=== PATIENT | male | born 1955 | race Caucasian/White ===

== ENCOUNTER → 2016-08-03 | Outpatient (REF) | payer MEDICARE, OTHER ==
[~2016-08-03] MED LIST: /ESOM40CA OR
[2016-08-03 12:27] LABS: PERCENT SATURATION 17.3 % (19.7-37.4)
== END ==
LOC: M LAB REF 11:47
PROVIDERS: ATTEND Nurse Practitioner Adult Health
DX: D64.9 Anemia, unspecified (principal)

== ENCOUNTER → 2017-02-06 | Outpatient (REF) | payer MEDICARE, OTHER ==
[2017-02-06 14:04] LABS: VITAMIN B12 LEVEL 278 PG/ML (247-911)
== END ==
LOC: M LAB REF 13:24
PROVIDERS: ATTEND Nurse Practitioner Adult Health
DX: D64.9 Anemia, unspecified (principal); K91.1 Postgastric surgery syndromes

== ENCOUNTER → 2017-08-31 | Outpatient (REF) | payer MEDICARE, OTHER ==
[2017-08-31 11:28] LABS: PROSTATIC SPECIFIC AG MONITOR 0.96 NG/ML (< 4.0)
== END ==
LOC: M LAB REF 10:40
DX: Z12.5 Encounter for screening for malignant neoplasm of prostate (principal)
CPT/HCPCS: G0103

== ENCOUNTER → 2019-08-29 | Outpatient (CLI) | payer MEDICARE, OTHER ==
[~2019-08-29] MED LIST changes: -/ESOM40CA OR; +AZEL0.055 INH; +BIMA01SOL OU; +CHOL100029 PO; +CIAL20TA PO; +FLUTISP INH; +MOME50SP NARES; +MULT1TAB10 PO; +MULTCAP PO; +NEXI1CAP3 OR; +SUCR1ORA2 PO; +SUCR1TA PO; +VITAD1000T PO
[2019-08-29 16:23] LABS: BASO % 0.4 % (0.0-1.0); EOS # 0.1 10^3/uL (0.0-0.5); EOS % 1.8 % (0.0-3.0); HEMATOCRIT 38.8 % (42.0-52.0); HEMOGLOBIN 12.7 g/dl (13.5-17.5); LYMPH % 20.1 % (24.0-44.0); MEAN CORPUSCULAR HEMOGLOBIN 29.5 pg (27.0-33.0); MEAN CORPUSCULAR HGB CONC 32.7 g/dl (32.0-36.5); MEAN CORPUSCULAR VOLUME 90.2 fl (80.0-96.0); MONO # 0.4 10^3/uL (0.0-0.8); MONO % 8.4 % (0.0-5.0); NEUTROPHILS # 3.4 10^3/uL (1.5-8.5); NEUTROPHILS % 68.9 % (36.0-66.0); PLATELET COUNT, AUTOMATED 217 10^3/uL (150-450)
[2019-08-29 16:26] LABS: ALBUMIN 3.7 GM/DL (3.2-5.2); ALT/SGPT 31 U/L (12-78); BILIRUBIN,TOTAL 0.8 MG/DL (0.2-1.0); BLOOD UREA NITROGEN 18 MG/DL (7-18); CARBON DIOXIDE LEVEL 27 MEQ/L (21-32); CHLORIDE LEVEL 105 MEQ/L (98-107); CREATININE FOR GFR 1.24 MG/DL (0.70-1.30); GLOMERULAR FILTRATION RATE > 60.0 (>49); GLUCOSE, FASTING 107 MG/DL (70-100); POTASSIUM SERUM 4.2 MEQ/L (3.5-5.1); PROSTATIC SPECIFIC AG MONITOR 0.62 NG/ML (< 4.00); SODIUM LEVEL 138 MEQ/L (136-145); TOTAL PROTEIN 6.8 GM/DL (6.4-8.2)
[2019-08-30 10:37] LABS: IRON (FE) 89 UG/DL (65-175); PERCENT SATURATION 26.9 % (19.7-50.0); TOTAL IRON BINDING CAPACITY 331 UG/DL (250-450)
== END ==
LOC: M WUC 14:14
PROVIDERS: ATTEND Nurse Practitioner Family
DX: C15.9 Malignant neoplasm of esophagus, unspecified (principal); D64.9 Anemia, unspecified

== ENCOUNTER → 2020-01-30 | Outpatient (REF) | payer MEDICARE, OTHER ==
[~2020-01-30] MED LIST changes: +D31000TA2 PO; -VITAD1000T PO
== END ==
LOC: M LAB REF 16:08
PROVIDERS: ATTEND Nurse Practitioner Adult Health
DX: D64.9 Anemia, unspecified (principal)

== ENCOUNTER → 2020-03-17 | Outpatient (CLI) | payer SELFPAY | LOC: M LABSMTC 12:58 | PROVIDERS: ATTEND Pediatrics | DX: Z20.828 Contact with and (suspected) exposure to other viral communicable diseases (principal) ==

== ENCOUNTER → 2020-03-30 | Outpatient (CLI) | payer SELFPAY | LOC: M LABSMTC 14:01 | PROVIDERS: ATTEND Pediatrics | DX: Z11.59 Encounter for screening for other viral diseases (principal) ==

== ENCOUNTER → 2020-07-29 | Outpatient (CLI) | payer MEDICARE, OTHER ==
[~2020-07-29] MED LIST changes: +MUCI600T31 PO; +RA N1TAB PO; +VITMTA PO
== END ==
LOC: M LABSMTC 11:29
PROVIDERS: ATTEND Anesthesiology
DX: Z11.52 Encounter for screening for COVID-19 (principal)

== ENCOUNTER 2020-08-03 06:26 | Day surgery (SDC) | payer MEDICARE, OTHER ==
[~2020-08-03] VITALS: Ht 165.1 cm; Wt 65.2 kg
[2020-08-03] MEDS ORDERED: DUOVISC (0.50ML VISCOAT/0.55ML PROVISC) OPHTH KIT As Ordered ONE ×2 (06:44→06:46)
[2020-08-03] MEDS ORDERED: POVIDONE-IODINE 5% OPHTH PREP SOL 30ML As Ordered ONE (06:44)
[2020-08-03] MEDS ORDERED: TROPICAMIDE 1% OPHTH SOLN 2ML OD ONE (07:00)
[2020-08-03] MEDS ORDERED: PROPARACAINE 0.5% OPHTH SOL 15ML OD ONE (07:00)
[2020-08-03] MEDS ORDERED: PHENYLEPHRINE 2.5% OPHTH SOL 2ML OD ONE (07:00)
[2020-08-03] MEDS ORDERED: OFLOXACIN 0.3 % (OCUFLOX) OPTH SOL 5ML OD ONE (07:00)
[2020-08-03] MEDS ORDERED: BSS IRR 500ML/OMIDRIA 4ML IRR BAG (OR ONLY) As Ordered ONE (07:46)
[2020-08-03] MEDS ORDERED: fentaNYL 100 MCG/2 ML INJECTION (J3010) As Ordered ONE (08:39)
[2020-08-03] MEDS ORDERED: MIDAZOLAM INJ 2MG/2ML VIAL (J2250 PER 1MG) As Ordered ONE (08:39)
[2020-08-03 09:10] VITALS: BP 120/77
--- NOTE | 2020-08-04 09:04 | RO ---
OPERATIVE NOTE DATE OF OPERATION: 08/03/2020 PREOPERATIVE DIAGNOSES: 1. Visually significant nuclear sclerotic cataract, right eye. 2. Primary open-angle glaucoma, right eye. POSTOPERATIVE DIAGNOSES: 1. Visually significant nuclear sclerotic cataract, right eye. 2. Primary open-angle glaucoma, right eye. PROCEDURES: 1. Extracapsular cataract removal with insertion of intraocular lens implant of the right eye, AU00T0, 18.5 D, right eye. 2. Placement of Glaukos iStent right eye. ANESTHESIA: Local (Omidria) with MAC COMPLICATIONS: None POSTOPERATIVE CONDITION: Stable INDICATIONS FOR SURGERY: 1. Blurred vision affecting patient's activities of daily living DESCRIPTION OF PROCEDURE: The patient was seen in the preoperative area and properly identified. The correct operative eye was identified and marked. The patient received topical anesthetic, antibiotics, and topical dilating drops. The patient was then transferred to the operating room. The correct side was re-identified and a timeout was performed. The eye was prepped and draped in a sterile fashion. The eyelids were isolated with Tegaderm tape and the lids were held open with an adjustable speculum. A 1.0 mm paracentesis incision was made. Omidria was injected into the anterior chamber. Viscoelastic was then injected into the anterior chamber through the paracentesis. Using a 2.4 mm sharp-tipped keratome, the anterior chamber was entered via a temporal clear cornea incision. A continuous curvilinear capsulorhexis was created with Utrata forceps. Hydrodissection was performed with BSS on a blunt cannula until the nucleus was able to rotate freely. The crystalline lens was phacoemulsified and aspirated. Irrigation/aspiration was used to remove the cortical material Cohesive viscoelastic was placed into the capsular bag to deepen it. The implant was placed into the capsular bag and allowed to unfold. Placement was confirmed by visualizing the anterior capsulorhexis. Additional viscoelastic was placed in the anterior chamber, and on top of the cornea. The head was untaped, and rotated away. The microscope was rotated to 45 degrees. A gonioprism was placed on the cornea and the angle was visualized. The iStent inject was placed into the trabecular meshwork, approximately 4 clock hours apart without difficulty. A small gush of heme was noted indicating appropriate placement. No hyphema was present. The head was placed face up and the microscope to 0 degrees. Irrigation/aspiration was used to remove the viscoelastic. The clear corneal incision was hydrated with BSS on a blunt cannula. The lens was well positioned. Cefuroxime was injected into the anterior chamber. The incisions were then tested for leaks and found to be negative. The eye was then palpated for appropriate pressure and adjusted accordingly with BSS. The eyelid speculum was then carefully removed. A shield was placed over the eye. The patient tolerated the procedure well and was discharge to the recovery unit in a stable condition.
== END 2020-08-03 09:15 | disposition home or self-care (01) ==
LOC: M SDC 06:26
PROVIDERS: ATTEND Ophthalmology
DX: H25.11 Age-related nuclear cataract, right eye (principal); H40.1110 Primary open-angle glaucoma, right eye, stage unspecified; I10 Essential (primary) hypertension; K21.9 Gastro-esophageal reflux disease without esophagitis; J44.9 Chronic obstructive pulmonary disease, unspecified; Z87.891 Personal history of nicotine dependence; G47.30 Sleep apnea, unspecified; Z88.0 Allergy status to penicillin; Z88.8 Allergy status to other drugs, medicaments and biological substances; Z79.899 Other long term (current) drug therapy; Z92.21 Personal history of antineoplastic chemotherapy; Z92.3 Personal history of irradiation; Z85.01 Personal history of malignant neoplasm of esophagus
CPT/HCPCS: 66183; 66984; C1783; J1097; J2250; J3010; V2632

== ENCOUNTER → 2020-09-10 | Outpatient (CLI) | payer MEDICARE, OTHER ==
[~2020-09-10] MED LIST changes: +BIMA01SOL OS; -BIMA01SOL OU; +OMEP-221 PO; +SYMB80INH INH; +VENTAER INH
== END ==
LOC: M LABSMTC 12:54
PROVIDERS: ATTEND Anesthesiology
DX: Z01.812 Encounter for preprocedural laboratory examination (principal); Z20.822 Contact with and (suspected) exposure to COVID-19

== ENCOUNTER 2020-09-14 07:59 | Day surgery (SDC) | payer MEDICARE, OTHER ==
[~2020-09-14] VITALS: Ht 165.1 cm; Wt 64.8 kg
[~2020-09-14 07:59] MED LIST changes: +DUOVISC (0.50ML VISCOAT/0.55ML PROVISC) OPHTH KIT As Ordered ONE; +MIDAZOLAM INJ 2MG/2ML VIAL (J2250 PER 1MG) As Ordered ONE; +OFLOXACIN 0.3 % (OCUFLOX) OPTH SOL 5ML OS ONE; +PHENYLEPHRINE 2.5% OPHTH SOL 2ML OS ONE; +POVIDONE-IODINE 5% OPHTH PREP SOL 30ML As Ordered ONE; +PROPARACAINE 0.5% OPHTH SOL 15ML OS ONE; +TROPICAMIDE 1% OPHTH SOLN 2ML OS ONE; +fentaNYL 100 MCG/2 ML INJECTION (J3010) As Ordered ONE
[2020-09-14] MEDS ORDERED: BSS IRR 500ML/OMIDRIA 4ML IRR BAG (OR ONLY) As Ordered ONE (08:57)
[2020-09-14] MEDS ORDERED: DUOVISC (0.50ML VISCOAT/0.55ML PROVISC) OPHTH KIT As Ordered ONE (09:45)
[2020-09-14 10:25] VITALS: BP 130/74
--- NOTE | 2020-09-15 07:56 | RO ---
OPERATIVE NOTE DATE OF OPERATION: 09/14/2020 PREOPERATIVE DIAGNOSES: 1. Visually significant nuclear sclerotic cataract, left eye. 2. Primary open angle glaucoma, left eye. POSTOPERATIVE DIAGNOSES: 1. Visually significant nuclear sclerotic cataract, left eye. 2. Primary open angle glaucoma, left eye. PROCEDURE: 1. Cataract extraction with use of phacoemulsification, and placement of intraocular lens, AU00T0, 18.5 D, left eye. 2. Placement of GlaukosiStent, left eye. ANESTHESIA: Local (Omidria) with MAC COMPLICATIONS: None POSTOPERATIVE CONDITION: Stable INDICATIONS FOR SURGERY: 1. Blurred vision affecting patient's activities of daily living DESCRIPTION OF PROCEDURE: The patient was seen in the preoperative area and properly identified. The correct operative eye was identified and marked. The patient received topical anesthetic, antibiotics, and topical dilating drops. The patient was then transferred to the operating room. The correct side was re-identified and a timeout was performed. The eye was prepped and draped in a sterile fashion. The eyelids were isolated with Tegaderm tape and the lids were held open with an adjustable speculum. A 1.0mm paracentesis incision was made. Omidria was injected into the anterior chamber. Viscoelastic was then injected into the anterior chamber through the paracentesis. Using a 2.4mm sharp-tipped keratome, the anterior chamber was entered via a temporal clear cornea incision. A continuous curvilinear capsulorhexis was created with Utrata forceps. Hydrodissection was performed with BSS on a blunt cannula until the nucleus was able to rotate freely. The crystalline lens was phacoemulsified and aspirated. Irrigation/aspiration was used to remove the cortical material Cohesive viscoelastic was placed into the capsular bag to deepen it. The implant was placed into the capsular bag and allowed to unfold. Placement was confirmed by visualizing the anterior capsulorhexis. Additional viscoelastic was placed in the anterior chamber, and on top of the cornea. The head was untaped, and rotated away. The microscope was rotated to 45 degrees. A gonioprism was placed on the cornea and the angle was visualized. The iStent inject was placed into the trabecular meshwork, approximately 4 clock hours apart without difficulty. A small gush of heme was noted indicating appropriate placement. No hyphema was present. The head was placed face up and the microscope to 0 degrees. Irrigation/aspiration was used to remove the viscoelastic. The clear corneal incision was hydrated with BSS on a blunt cannula. The lens was well positioned. Cefuroxime was injected into the anterior chamber. The incisions were then tested for leaks and found to be negative. The eye was then palpated for appropriate pressure and adjusted accordingly with BSS. The eyelid speculum was then carefully removed. A shield was placed over the eye. The patient tolerated the procedure well and was discharge to the recovery unit in a stable condition.
== END 2020-09-14 10:41 | disposition home or self-care (01) ==
LOC: M SDC 07:59
PROVIDERS: ATTEND Ophthalmology
DX: H25.12 Age-related nuclear cataract, left eye (principal); H40.1124 Primary open-angle glaucoma, left eye, indeterminate stage; I10 Essential (primary) hypertension; K21.9 Gastro-esophageal reflux disease without esophagitis; M54.9 Dorsalgia, unspecified; J44.9 Chronic obstructive pulmonary disease, unspecified; J45.909 Unspecified asthma, uncomplicated; G47.30 Sleep apnea, unspecified; Z85.01 Personal history of malignant neoplasm of esophagus; Z92.3 Personal history of irradiation; Z92.21 Personal history of antineoplastic chemotherapy; Z88.0 Allergy status to penicillin; Z88.8 Allergy status to other drugs, medicaments and biological substances; Z79.899 Other long term (current) drug therapy; Z79.51 Long term (current) use of inhaled steroids
CPT/HCPCS: 66183; 66984; C1783; J1097; J2250; J3010; V2632

== ENCOUNTER → 2021-09-04 | Outpatient (CLI) | payer MEDICARE, OTHER ==
[~2021-09-04] MED LIST changes: -D31000TA2 PO; -DUOVISC (0.50ML VISCOAT/0.55ML PROVISC) OPHTH KIT As Ordered ONE; +LEVOTAB10; -MIDAZOLAM INJ 2MG/2ML VIAL (J2250 PER 1MG) As Ordered ONE; -MOME50SP NARES; +NASO50SP3 NARES; -OFLOXACIN 0.3 % (OCUFLOX) OPTH SOL 5ML OS ONE; -OMEP-221 PO; +OMEP40CA5 PO; -PHENYLEPHRINE 2.5% OPHTH SOL 2ML OS ONE; -POVIDONE-IODINE 5% OPHTH PREP SOL 30ML As Ordered ONE; -PROPARACAINE 0.5% OPHTH SOL 15ML OS ONE; -TROPICAMIDE 1% OPHTH SOLN 2ML OS ONE; +VITA100093 PO; -fentaNYL 100 MCG/2 ML INJECTION (J3010) As Ordered ONE
== END ==
LOC: M LABSMTC 09:30
PROVIDERS: ATTEND Anesthesiology
DX: Z01.812 Encounter for preprocedural laboratory examination (principal); Z20.822 Contact with and (suspected) exposure to COVID-19

== ENCOUNTER 2021-09-09 08:36 | Day surgery (SDC) | payer MEDICARE, OTHER ==
[~2021-09-09] VITALS: Ht 165.1 cm; Wt 59.9 kg
[~2021-09-09 08:36] MED LIST changes: +NS 1,000 ML IV ONE
[2021-09-09] MEDS ORDERED: propofoL 500 MG/50 ML VIAL As Ordered ONE (08:53)
[2021-09-09] MEDS ORDERED: fentaNYL 100 MCG/2 ML INJECTION As Ordered ONE (08:53)
[2021-09-09] MEDS ORDERED: LIDOCAINE 2% 100MG/5ML SDV (FOR ANES.) As Ordered ONE (08:53)
[2021-09-09 11:28] VITALS: BP 114/66
== END 2021-09-09 11:30 | disposition home or self-care (01) ==
LOC: M OPP 08:36
PROVIDERS: ATTEND Surgery
DX: R13.10 Dysphagia, unspecified (principal); K22.2 Esophageal obstruction; K29.61 Other gastritis with bleeding; K21.9 Gastro-esophageal reflux disease without esophagitis; F43.10 Post-traumatic stress disorder, unspecified; J44.9 Chronic obstructive pulmonary disease, unspecified; G47.30 Sleep apnea, unspecified; D64.9 Anemia, unspecified; Z85.01 Personal history of malignant neoplasm of esophagus; Z92.21 Personal history of antineoplastic chemotherapy; Z92.3 Personal history of irradiation; Z87.891 Personal history of nicotine dependence; Z88.0 Allergy status to penicillin; Z88.8 Allergy status to other drugs, medicaments and biological substances; Z79.899 Other long term (current) drug therapy
CPT/HCPCS: 43249; J3010

== ENCOUNTER → 2021-11-22 | Outpatient (CLI) | payer MEDICARE, OTHER ==
[~2021-11-22] MED LIST changes: +E-Z-GAS II EFFERVESCENT PACKET (SODIUM BICARB./CITRIC ACID/SIMETHICONE) As Ordered ONE; +E-Z-HD 98% w/w 340GM SUSP BTL As Ordered ONE; +E-Z-PAQUE 96% w/w SUSP 176GM BTL As Ordered ONE; -NS 1,000 ML IV ONE; +TREL1AER PO
== END ==
LOC: M RAD 10:16
PROVIDERS: ATTEND Surgery
DX: R13.10 Dysphagia, unspecified (principal); R93.3 Abnormal findings on diagnostic imaging of other parts of digestive tract

== ENCOUNTER → 2021-11-24 | Outpatient (CLI) | payer MEDICARE, OTHER ==
[~2021-11-24] MED LIST changes: +BARIUM SULFATE 700 MG TABLET (E-Z-DISK) As Ordered ONE; -E-Z-GAS II EFFERVESCENT PACKET (SODIUM BICARB./CITRIC ACID/SIMETHICONE) As Ordered ONE; -E-Z-HD 98% w/w 340GM SUSP BTL As Ordered ONE; +VARIBAR NECTAR 40% w/v 240ML SUSP BTL As Ordered ONE; +VARIBAR PUDDING 40% w/v 230ML TUBE As Ordered ONE
== END ==
LOC: M RAD 10:37
PROVIDERS: ATTEND Surgery
DX: R13.10 Dysphagia, unspecified (principal)

== ENCOUNTER → 2021-11-26 | Outpatient (CLI) | payer MEDICARE, OTHER ==
[~2021-11-26] MED LIST changes: -BARIUM SULFATE 700 MG TABLET (E-Z-DISK) As Ordered ONE; -E-Z-PAQUE 96% w/w SUSP 176GM BTL As Ordered ONE; +GASTROGRAFIN SOLUTION 30ML (Q9963) As Ordered ONE; +ISOVUE-370 76% 100ML VIAL As Ordered ONE; -VARIBAR NECTAR 40% w/v 240ML SUSP BTL As Ordered ONE; -VARIBAR PUDDING 40% w/v 230ML TUBE As Ordered ONE
== END ==
LOC: M RAD 12:57
PROVIDERS: ATTEND Internal Medicine Medical Oncology
DX: R63.4 Abnormal weight loss (principal); R06.00 Dyspnea, unspecified; C15.9 Malignant neoplasm of esophagus, unspecified; J90 Pleural effusion, not elsewhere classified
CPT/HCPCS: 71260; 74177; Q9963; Q9967

== ENCOUNTER → 2022-01-27 | Outpatient (CLI) | payer MEDICARE, OTHER ==
[~2022-01-27] MED LIST changes: -GASTROGRAFIN SOLUTION 30ML (Q9963) As Ordered ONE; -ISOVUE-370 76% 100ML VIAL As Ordered ONE; -LEVOTAB10; +LEVOTAB10 PO; +PANT40TA29 PO
== END ==
LOC: M LABSMTC 10:30
PROVIDERS: ATTEND Anesthesiology
DX: Z01.812 Encounter for preprocedural laboratory examination (principal); Z20.822 Contact with and (suspected) exposure to COVID-19

== ENCOUNTER 2022-02-01 08:17 | Day surgery (SDC) | payer MEDICARE, OTHER ==
[~2022-02-01] VITALS: Ht 165.1 cm; Wt 54.4 kg
[~2022-02-01 08:17] MED LIST changes: +NS 1,000 ML IV ONE
[2022-02-01] MEDS ORDERED: propofoL 500 MG/50 ML VIAL As Ordered ONE (08:56)
[2022-02-01 11:25] VITALS: BP 123/78
== END 2022-02-01 11:48 | disposition home or self-care (01) ==
LOC: M OPP 08:17
PROVIDERS: ATTEND Internal Medicine Gastroenterology
DX: K64.4 Residual hemorrhoidal skin tags (principal); K64.8 Other hemorrhoids; D50.0 Iron deficiency anemia secondary to blood loss (chronic); C15.9 Malignant neoplasm of esophagus, unspecified; Z98.890 Other specified postprocedural states; Z98.0 Intestinal bypass and anastomosis status; Z79.52 Long term (current) use of systemic steroids; Z79.899 Other long term (current) drug therapy; Z88.0 Allergy status to penicillin; Z88.5 Allergy status to narcotic agent; J44.9 Chronic obstructive pulmonary disease, unspecified; G47.33 Obstructive sleep apnea (adult) (pediatric); Z87.891 Personal history of nicotine dependence; Z86.59 Personal history of other mental and behavioral disorders; Z92.21 Personal history of antineoplastic chemotherapy; Z84.81 Family history of carrier of genetic disease; Z80.41 Family history of malignant neoplasm of ovary

== ENCOUNTER → 2022-02-11 | Outpatient (CLI) | payer MEDICARE, OTHER ==
[~2022-02-11] MED LIST changes: +BENZ-18 PO; +ENOX40IN3; +FLUTISP; +HYDR5LIQ2 PO; -NS 1,000 ML IV ONE
== END ==
LOC: M ONCR 10:22
PROVIDERS: ATTEND General Practice
DX: C16.0 Malignant neoplasm of cardia (principal); E46 Unspecified protein-calorie malnutrition; R13.10 Dysphagia, unspecified; Z79.51 Long term (current) use of inhaled steroids; Z79.899 Other long term (current) drug therapy; Z87.891 Personal history of nicotine dependence; Z88.0 Allergy status to penicillin; Z88.8 Allergy status to other drugs, medicaments and biological substances; Z98.0 Intestinal bypass and anastomosis status; Z92.21 Personal history of antineoplastic chemotherapy; Z92.3 Personal history of irradiation

== ENCOUNTER → 2022-02-16 | Outpatient (CLI) | payer MEDICARE, OTHER ==
[~2022-02-16] MED LIST changes: +CLAR10CA3 PO; +DYMI137S; +GOOD81CH3 PO; +GUAI100L6 PO; +GUAI1SOL2 PO; +HYDR-3713 PO; +LIDO1CRE42 TOP; +LORA1TAB4 PO; +MAGICMW PO; +MAGICMW SSP; +META0.52 PO; +METR1INJ2 GT; +OMEP40CA4 PO; +ONDA-83 PO; +ONDA-84 PO; +PROC10TA5 PO; +[UNRECOGNIZED DRUG - CODE] MM
== END ==
LOC: M ONCR 13:06
PROVIDERS: ATTEND Dietitian, Registered
DX: C16.0 Malignant neoplasm of cardia (principal); Z90.49 Acquired absence of other specified parts of digestive tract; Z92.21 Personal history of antineoplastic chemotherapy

== ENCOUNTER → 2022-02-16 | Outpatient (CLI) | payer MEDICARE, OTHER ==
[~2022-02-16] MED LIST changes: -GOOD81CH3 PO; -GUAI1SOL2 PO; -HYDR-3713 PO
== END ==
LOC: M ONCR 09:06
PROVIDERS: ATTEND General Practice
DX: C16.0 Malignant neoplasm of cardia (principal); C79.51 Secondary malignant neoplasm of bone; Z79.51 Long term (current) use of inhaled steroids; Z79.891 Long term (current) use of opiate analgesic; Z79.899 Other long term (current) drug therapy; Z88.0 Allergy status to penicillin; Z88.8 Allergy status to other drugs, medicaments and biological substances; Z90.49 Acquired absence of other specified parts of digestive tract; Z92.21 Personal history of antineoplastic chemotherapy; Z92.3 Personal history of irradiation

== ENCOUNTER → 2022-02-17 | Outpatient (CLI) | payer MEDICARE, OTHER ==
[~2022-02-17] MED LIST changes: -MAGICMW PO; -METR1INJ2 GT; -ONDA-83 PO
== END ==
LOC: M ONCR 09:36
PROVIDERS: ATTEND General Practice
DX: Z53.9 Procedure and treatment not carried out, unspecified reason (principal)

== ENCOUNTER → 2022-02-17 | Outpatient (CLI) | payer MEDICARE, OTHER ==
[~2022-02-17] MED LIST changes: -CLAR10CA3 PO; -GUAI100L6 PO; -LIDO1CRE42 TOP; -MAGICMW SSP; -META0.52 PO; -ONDA-84 PO; -PROC10TA5 PO; -[UNRECOGNIZED DRUG - CODE] MM
[2022-02-17 10:34] LABS: PROTHROMBIN TIME 13.4 SECONDS (12.5-14.5)
[2022-02-17 10:35] LABS: PARTIAL THROMBOPLASTIN TIME 33.6 SECONDS (24.8-34.2)
[2022-02-17 13:20] VITALS: BP 152/98
[2022-02-17 13:28] LABS: PH BODY FLUID 7.583 UNITS (NOT ESTABLISHED); SOURCE, BODY FLUID pH PLEURAL
[2022-02-17 14:17] LABS: LDH, BODY FLUID 168 U/L (NOT ESTABLISHED); SOURCE, BODY FLUID GLUCOSE PLEURAL; SOURCE, BODY FLUID LDH PLEURAL; SOURCE, BODY FLUID TOT PROTEIN PLEURAL; TOTAL PROTEIN, BODY FLUID 3.5 G/DL (NOT ESTABLISHED)
[2022-02-17 19:50] LABS: SOURCE, BODY FLUID PLEURAL
[2022-02-17 19:51] LABS: APPEARANCE, BODY FLUID HAZY (CLEAR); PLEURAL FL COLOR YELLOW (COLORLESS)
== END ==
LOC: M IRPRO 09:55
PROVIDERS: ATTEND Internal Medicine Medical Oncology
DX: C16.0 Malignant neoplasm of cardia (principal); J90 Pleural effusion, not elsewhere classified

== ENCOUNTER → 2022-02-20 | Outpatient (CLI) | payer MEDICARE, OTHER ==
[~2022-02-20] MED LIST changes: +GUAI100L6 PO; +LIDO1CRE42 TOP; +MAGICMW SSP; +META0.52 PO; +ONDA-84 PO; +PROC10TA5 PO; +[UNRECOGNIZED DRUG - CODE] MM
== END ==
LOC: M LABSMTC 10:06
PROVIDERS: ATTEND Anesthesiology
DX: Z01.812 Encounter for preprocedural laboratory examination (principal); Z20.822 Contact with and (suspected) exposure to COVID-19

== ENCOUNTER 2022-02-22 10:16 | Day surgery (SDC) | payer MEDICARE, OTHER ==
[~2022-02-22] VITALS: Ht 165.1 cm; Wt 51.2 kg
[~2022-02-22 10:16] MED LIST changes: -DYMI137S; -GUAI100L6 PO; -LIDO1CRE42 TOP; -MAGICMW SSP; -META0.52 PO; -OMEP40CA4 PO; -ONDA-84 PO; -PROC10TA5 PO; -[UNRECOGNIZED DRUG - CODE] MM
[2022-02-22] MEDS ORDERED: ceFAZolin SOD 1 GM in D5W MINI-BAG PLUS 50 ML IV ONE (10:50)
[2022-02-22] MEDS ORDERED: OMEP40CA4 PO (10:54)
[2022-02-22] MEDS ORDERED: DYMI137S (10:54)
[2022-02-22] MEDS ORDERED: LR 1,000 ML IV SCH ×3 (11:05→13:25)
[2022-02-22] MEDS ORDERED: MIDAZOLAM INJ 2MG/2ML VIAL (J2250 PER 1MG) As Ordered ONE (11:20)
[2022-02-22] MEDS ORDERED: LIDOCAINE 2% 100MG/5ML SDV (FOR ANES.) As Ordered ONE (11:20)
[2022-02-22] MEDS ORDERED: propofoL 200 MG/20 ML VIAL As Ordered ONE (11:20)
[2022-02-22] MEDS ORDERED: fentaNYL 100 MCG/2 ML INJECTION As Ordered ONE (11:20)
[2022-02-22] MEDS ORDERED: ONDANSETRON 4MG 2ML VIAL As Ordered ONE (11:53)
[2022-02-22] MEDS ORDERED: dexameTHASONE 4 MG/ML 1ML VIAL (J1100 PER 1MG) As Ordered ONE (11:54)
[2022-02-22] MEDS ORDERED: METOCLOPRAMIDE INJ 10MG/2ML VIAL (J2765 PER 1) As Ordered ONE (11:54)
[2022-02-22] MEDS ORDERED: LIDOCAINE 1% SDV 30ML VIAL As Ordered ONE (11:55)
[2022-02-22] MEDS ORDERED: HEPARIN SOD (PORCINE) 5000UNITS/ML 1ML VIAL/SYRINGE As Ordered ONE ×2 (11:55→12:29)
[2022-02-22] MEDS ORDERED: BUPIVACAINE HCL 0.5% 30ML VIAL As Ordered ONE (11:56)
[2022-02-22] MEDS ORDERED: ROCURONIUM BROMIDE 50 MG/5 ML VIAL As Ordered ONE (11:58)
[2022-02-22] MEDS ORDERED: SUGAMMADEX SODIUM 500 MG/5 ML VIAL (BRIDION) As Ordered ONE (12:52)
[2022-02-22] MEDS ORDERED: PHENYLephrine 500MCG 5ML (100MCG/ML) SYRINGE As Ordered ONE (12:58)
[2022-02-22] MEDS ORDERED: MULTIVITAMIN -ADULT INJECTION 10 ML, THIAMINE INJection 100 MG, FOLIC ACID 1 MG in NS 1... IV ONE (13:00)
[2022-02-22] MEDS ORDERED: fentaNYL 100 MCG/2 ML INJECTION IV PRN ×2 (13:25)
[2022-02-22] MEDS ORDERED: oxyCODONE 5MG TAB PO PRN ×2 (13:25)
[2022-02-22] MEDS ORDERED: ONDANSETRON 4MG 2ML VIAL IV PRN ×2 (13:25)
[2022-02-22 14:45] VITALS: BP 123/67
[2022-02-22] MEDS ORDERED: NS 1,000 ML IV SCH (14:45)
[2022-02-23] MEDS ORDERED: META0.52 PO (08:53)
[2022-02-23] MEDS ORDERED: GUAI100L6 PO (08:53)
[2022-02-23] MEDS ORDERED: [UNRECOGNIZED DRUG - CODE] MM (08:54)
[2022-02-23] MEDS ORDERED: LIDO1CRE42 TOP (09:21)
[2022-02-23] MEDS ORDERED: MAGICMW SSP (09:21)
[2022-02-23] MEDS ORDERED: PROC10TA5 PO (13:23)
[2022-02-23] MEDS ORDERED: ONDA-84 PO (13:23)
== END 2022-02-22 15:04 | disposition home or self-care (01) ==
LOC: M SDC 10:16
PROVIDERS: ATTEND Surgery
DX: C15.9 Malignant neoplasm of esophagus, unspecified (principal); R13.10 Dysphagia, unspecified; K21.9 Gastro-esophageal reflux disease without esophagitis; D64.9 Anemia, unspecified; Z88.0 Allergy status to penicillin; Z88.8 Allergy status to other drugs, medicaments and biological substances
CPT/HCPCS: 36561; 71045; 76000; 93005; C1788; J0690; J1100; J1642; J1644; J2250; J2370; J2405; J2765; J3010; J3411

== ENCOUNTER 2022-02-27 13:07 | Emergency (ER) | payer MEDICARE, OTHER ==
[~2022-02-27] VITALS: Ht 165.1 cm; Wt 48.2 kg
[~2022-02-27 13:07] MED LIST changes: +DYMI137S; +GUAI100L6 PO; +LIDO1CRE42 TOP; +MAGICMW SSP; +META0.52 PO; +OMEP40CA4 PO; +ONDA-84 PO; +PROC10TA5 PO; +[UNRECOGNIZED DRUG - CODE] MM
[2022-02-27] MEDS ORDERED: PANT40TA29 PO (13:36)
[2022-02-27] MEDS ORDERED: CLAR10CA3 PO (13:36)
[2022-02-27] MEDS ORDERED: NS 1,000 ML IV ONE (13:40)
[2022-02-27] MEDS ORDERED: SODIUM CHLORIDE 0.9% INJ 10 ML SYR IV PRN (13:40)
[2022-02-27 14:33] LABS: HEMATOCRIT 35.4 % (42.0-52.0); HEMOGLOBIN 11.4 g/dl (13.5-17.5); MEAN CORPUSCULAR HEMOGLOBIN 26.7 pg (27.0-33.0); MEAN CORPUSCULAR HGB CONC 32.2 g/dl (32.0-36.5); MEAN CORPUSCULAR VOLUME 82.9 fl (80.0-96.0); PLATELET COUNT, AUTOMATED 464 10^3/uL (150-450); RED BLOOD COUNT 4.27 10^6/uL (4.30-6.10)
[2022-02-27 14:39] LABS: WHITE BLOOD COUNT 36.7 10^3/uL (4.0-10.0)
[2022-02-27 15:06] LABS: ALT/SGPT 34 U/L (12-78); BILIRUBIN,DIRECT 0.2 MG/DL (0.0-0.2); BILIRUBIN,TOTAL 0.6 MG/DL (0.2-1.0); BLOOD UREA NITROGEN 23 MG/DL (7-18); CALCIUM LEVEL 8.6 MG/DL (8.8-10.2); CARBON DIOXIDE LEVEL 29 MEQ/L (21-32); CHLORIDE LEVEL 98 MEQ/L (98-107); CREATININE FOR GFR 0.75 MG/DL (0.70-1.30); GLOMERULAR FILTRATION RATE > 60.0 (>49); GLUCOSE, FASTING 108 MG/DL (70-100); LIPASE 97 U/L (73-393); POTASSIUM SERUM 5.1 MEQ/L (3.5-5.1); SODIUM LEVEL 136 MEQ/L (136-145); TOTAL PROTEIN 5.6 GM/DL (6.4-8.2)
[2022-02-27 15:16] LABS: LYMPHOCYTES 1 % (16-44); MONOCYTES 4 % (0-5); NEUTROPHILS 94 % (28-66)
[2022-02-27 15:17] LABS: PLATELET ESTIMATE INCREASED (NORMAL)
[2022-02-27] MEDS ORDERED: metroNIDAZOLE 500 MG in IV 1 EA IV ONE (16:50)
[2022-02-27] MEDS ORDERED: cefTRIAXone SOD 2 GM in D5W MINI-BAG PLUS 50 ML IV ONE (16:50)
[2022-02-27 18:15] VITALS: BP 117/81
== END 2022-02-27 18:41 | disposition short-term general hospital (02) ==
LOC: M ED 13:07 → EDBD 13:07 → M ED 18:41
DX: R13.10 Dysphagia, unspecified (principal); Z87.19 Personal history of other diseases of the digestive system; E88.09 Other disorders of plasma-protein metabolism, not elsewhere classified; J69.8 Pneumonitis due to inhalation of other solids and liquids; C16.9 Malignant neoplasm of stomach, unspecified; C15.9 Malignant neoplasm of esophagus, unspecified; Z87.891 Personal history of nicotine dependence; Z95.9 Presence of cardiac and vascular implant and graft, unspecified; Z96.89 Presence of other specified functional implants; Z79.899 Other long term (current) drug therapy; Z88.0 Allergy status to penicillin; Z88.8 Allergy status to other drugs, medicaments and biological substances
CPT/HCPCS: 71045; 80048; 80076; 83605; 83690; 85025; 87040; 87486; 87581; 87633; 87798; 93005; 93041; 94760; 96361; 96365; 96367; 99285; J0696

== ENCOUNTER 2022-03-08 01:43 | Emergency (ER) | payer MEDICARE, OTHER ==
[~2022-03-08] VITALS: Ht 165.1 cm; Wt 47.9 kg
[~2022-03-08 01:43] MED LIST changes: +CLAR10CA3 PO
[2022-03-08 05:37] LABS: VENOUS BASE EXCESS 6.3 (-2.0-2.0); VENOUS HCO3 31.9 MEQ/L (23.0-27.0); VENOUS O2 SATURATION 74.8 % (60.0-80.0); VENOUS PARTIAL PRESSURE CO2 50.7 mmHg (38.0-50.0); VENOUS PARTIAL PRESSURE O2 38.7 mmHg (30.0-50.0); VENOUS PH 7.417 UNITS (7.330-7.430); VENOUS STANDARD HCO3 29.8 MEQ/L; VENOUS TOTAL CO2 33.5 MEQ/L (24.0-28.0)
[2022-03-08 05:45] LABS: APPEARANCE, URINE MANUAL CLEAR (CLEAR); COLOR, URINE MANUAL YELLOW (YELLOW)
[2022-03-08 05:46] LABS: BILIRUBIN, URINE MANUAL NEGATIVE (NEGATIVE); BLOOD URINE MANUAL NEGATIVE (NEGATIVE); GLUCOSE, URINE (UA) MANUAL NEGATIVE (NEGATIVE); KETONE, URINE MANUAL NEGATIVE (NEGATIVE); LEUKOCYTE ESTERASE, URINE MAN TRACE (NEGATIVE); NITRITE, URINE MANUAL POSITIVE (NEGATIVE); PROTEIN, URINE MANUAL TRACE mg/dL (NEGATIVE); SPECIFIC GRAVITY,URINE MANUAL 1.015 (1.002-1.035); UROBILINOGEN, URINE MANUAL NORMAL (NORMAL)
[2022-03-08 05:58] LABS: RBC, URINE 0-1 /hpf (0-3)
[2022-03-08 05:59] LABS: BACTERIA, URINE SMALL AMOUNT; HYALINE CAST, URINE NONE SEEN /lpf (0-1); MUCUS, URINE LARGE AMOUNT (NEGATIVE); SQUAMOUS EPITHELIAL CELL URINE NONE SEEN /hpf (SMALL AMT)
[2022-03-08 06:09] LABS: HEMATOCRIT 33.5 % (42.0-52.0); HEMOGLOBIN 10.2 g/dl (13.5-17.5); MEAN CORPUSCULAR HEMOGLOBIN 26.2 pg (27.0-33.0); MEAN CORPUSCULAR HGB CONC 30.4 g/dl (32.0-36.5); MEAN CORPUSCULAR VOLUME 85.9 fl (80.0-96.0); PLATELET COUNT, AUTOMATED 250 10^3/uL (150-450); WHITE BLOOD COUNT 27.4 10^3/uL (4.0-10.0)
[2022-03-08 06:10] LABS: INR 1.24; PARTIAL THROMBOPLASTIN TIME 30.3 SECONDS (24.8-34.2); PROTHROMBIN TIME 15.9 SECONDS (12.5-14.5)
[2022-03-08 06:15] LABS: RSV AMPLIFICATION NEGATIVE (NEGATIVE)
[2022-03-08 06:22] LABS: ALBUMIN 2.1 GM/DL (3.2-5.2); ALT/SGPT 44 U/L (12-78); AMYLASE 147 U/L (25-115); BILIRUBIN,DIRECT 0.2 MG/DL (0.0-0.2); BILIRUBIN,TOTAL 0.2 MG/DL (0.2-1.0); BLOOD UREA NITROGEN 16 MG/DL (7-18); CALCIUM LEVEL 8.3 MG/DL (8.8-10.2); CARBON DIOXIDE LEVEL 33 MEQ/L (21-32); CHLORIDE LEVEL 99 MEQ/L (98-107); CK-MB VALUE MASS 1.1 NG/ML (<3.6); CREATININE FOR GFR 0.78 MG/DL (0.70-1.30); GLOMERULAR FILTRATION RATE > 60.0 (>49); GLUCOSE, FASTING 145 MG/DL (70-100); MB/CK RELATIVE INDEX 1.64 (< OR =4); POTASSIUM SERUM 4.6 MEQ/L (3.5-5.1); SODIUM LEVEL 133 MEQ/L (136-145); TOTAL PROTEIN 5.5 GM/DL (6.4-8.2)
[2022-03-08] MEDS ORDERED: NS 1,000 ML IV ONE (06:45)
[2022-03-08] MEDS ORDERED: cefTRIAXone SOD 1 GM in D5W MINI-BAG PLUS 50 ML IV ONE (07:40)
[2022-03-08] MEDS ORDERED: metroNIDAZOLE 500 MG in IV 1 EA IV ONE (07:40)
[2022-03-08 07:43] LABS: ANISOCYTOSIS 2+; ATYPICAL LYMPH 1 % (0-5); EOSINOPHILS 1 % (0-3); LYMPHOCYTES 7 % (16-44); METAMYELOCYTES 2 % (0-0); MONOCYTES 4 % (0-5); MYELOCYTES 1 % (0-0); NEUTROPHILS 74 % (28-66); PLATELET ESTIMATE NORMAL (NORMAL)
[2022-03-08 07:44] LABS: HYPOCHROMASIA 1+
[2022-03-08] MEDS ORDERED: ISOVUE-370 76% 100ML VIAL As Ordered ONE (07:45)
[2022-03-08] MEDS ORDERED: MAGICMW PO (08:18)
[2022-03-08] MEDS ORDERED: LORA1TAB4 PO (08:18)
[2022-03-08] MEDS ORDERED: BENZ-18 PO (08:18)
[2022-03-08] MEDS ORDERED: ONDA-83 PO (08:19)
[2022-03-08] MEDS ORDERED: METR1INJ2 GT (08:19)
[2022-03-08] MEDS ORDERED: PROC10TA5 PO (08:19)
[2022-03-08] MEDS ORDERED: HOME MED LIST COMPLETE! XX SCH (08:20)
[2022-03-08 10:15] VITALS: BP 107/74
== END 2022-03-08 10:35 | disposition short-term general hospital (02) ==
LOC: M ED 01:43
DX: K22.3 Perforation of esophagus (principal); J85.3 Abscess of mediastinum; J18.9 Pneumonia, unspecified organism; Z85.01 Personal history of malignant neoplasm of esophagus; J44.9 Chronic obstructive pulmonary disease, unspecified; R93.2 Abnormal findings on diagnostic imaging of liver and biliary tract; K80.20 Calculus of gallbladder without cholecystitis without obstruction; Z93.1 Gastrostomy status; Z96.89 Presence of other specified functional implants; Z79.899 Other long term (current) drug therapy; Z88.0 Allergy status to penicillin; Z88.8 Allergy status to other drugs, medicaments and biological substances
CPT/HCPCS: 71045; 71260; 74177; 80048; 80076; 81000; 82150; 82550; 82553; 82803; 83605; 84484; 85025; 85610; 85730; 86140; 86850; 86900; 86901; 87040; 87086; 87631; 93005; 93041; 94760; 96361; 96365; 96366; 96375; 99285; J0696; Q9967

== ENCOUNTER → 2022-03-15 | Outpatient (CLI) | payer MEDICARE, OTHER ==
[~2022-03-15] VITALS: Ht 165.1 cm; Wt 46.0 kg
[~2022-03-15] MED LIST changes: +GOOD81CH3 PO; +GUAI1SOL2 PO; +HYDR-3713 PO; +MAGICMW PO; +METR1INJ2 GT; +ONDA-83 PO
[2022-03-15 14:58] VITALS: BP 105/71
== END ==
LOC: M PAL 14:49
PROVIDERS: ATTEND Nurse Practitioner Adult Health
DX: C15.5 Malignant neoplasm of lower third of esophagus (principal); J90 Pleural effusion, not elsewhere classified; D64.9 Anemia, unspecified; J18.8 Other pneumonia, unspecified organism; G47.01 Insomnia due to medical condition; G89.3 Neoplasm related pain (acute) (chronic); J86.0 Pyothorax with fistula; K31.89 Other diseases of stomach and duodenum; N40.0 Benign prostatic hyperplasia without lower urinary tract symptoms; R07.9 Chest pain, unspecified; R53.83 Other fatigue; R06.02 Shortness of breath; R19.7 Diarrhea, unspecified; R63.4 Abnormal weight loss; R05.8 Other specified cough; Z92.21 Personal history of antineoplastic chemotherapy; Z92.3 Personal history of irradiation; Z79.899 Other long term (current) drug therapy; Z79.891 Long term (current) use of opiate analgesic; Z79.51 Long term (current) use of inhaled steroids; Z88.0 Allergy status to penicillin; Z88.8 Allergy status to other drugs, medicaments and biological substances; Z51.5 Encounter for palliative care; Z87.891 Personal history of nicotine dependence; Z80.49 Family history of malignant neoplasm of other genital organs; Z97.8 Presence of other specified devices

== ENCOUNTER → 2022-03-22 | Outpatient (CLI) | payer MEDICARE, OTHER | LOC: M PAL 11:08 | PROVIDERS: ATTEND Nurse Practitioner Family | DX: C15.5 Malignant neoplasm of lower third of esophagus (principal); J90 Pleural effusion, not elsewhere classified; D64.9 Anemia, unspecified; G47.01 Insomnia due to medical condition; G89.3 Neoplasm related pain (acute) (chronic); K31.89 Other diseases of stomach and duodenum; R07.9 Chest pain, unspecified; L89.300 Pressure ulcer of unspecified buttock, unstageable; R19.7 Diarrhea, unspecified; R63.4 Abnormal weight loss; R05.8 Other specified cough; R53.83 Other fatigue; Z92.21 Personal history of antineoplastic chemotherapy; Z92.3 Personal history of irradiation; Z79.891 Long term (current) use of opiate analgesic; Z79.899 Other long term (current) drug therapy; Z79.51 Long term (current) use of inhaled steroids; Z88.0 Allergy status to penicillin; Z88.8 Allergy status to other drugs, medicaments and biological substances; Z51.5 Encounter for palliative care; Z87.891 Personal history of nicotine dependence ==